=== PATIENT | female | born 1990 | race Caucasian/White ===

== ENCOUNTER 2023-06-30 12:39 | Outpatient (AMB) | payer OTHER, SELFPAY ==
--- NOTE | 2023-06-30 12:58 | AM.OFFWIN_ITS ---
Intake Vital Signs 06/30/23 13:00 BP 116/70 Blood Pressure Location Lt brachial Position Sitting Pulse 88 Pulse Source Pulse Oximeter Temp 98.2 F Temp Source Oral Pulse Oximetry (%) 98 Oxygen Delivery Method Room Air Intake Visit Reasons: [employer]IST-Strep throat? Intake Note: Pt is here today c/o sore throat and a cough since yesterday: someone at work tested positive for strep Patient Tobacco Use Status: Former Tobacco user Allergies No Known Allergies Allergy (Verified 06/30/23 13:09) Medication List - Last Reconciled 06/30/23 by Devi Perea CNP No Known Home Meds HPI HPI Comments History of Present Illness Details 33-year-old female presents today for sick visit, complaining of sore throat and cough x 3 days, scratchy throat started 4 days ago.. Patient reports recent contact at work with employee tested positive for strep there. Patient reports history of strep throat, admits to fever, chills, cough, and difficulty swallowing due to irritated throat. She denies CP, SOB, headache, dizziness, neck pain, abdominal pain, nausea, vomiting, changes in bowel or bladder. [facility] Social History Patient Tobacco Use Status: Former Tobacco user Review of Systems Const All systems reviewed & are unremarkable except as noted in HPI and below Physical Exam Vital Signs: Last Vital Signs Temp 98.2 F 06/30/23 13:00 Pulse 88 06/30/23 13:00 BP 116/70 06/30/23 13:00 Pulse Ox 98 06/30/23 13:00 Oxygen Delivery Method Room Air 06/30/23 13:00 Const General: no acute distress Nutritional Appearance: well nourished Orientation/consciousness: patient oriented x3 Limitations: no limitations HEENT Head: Yes normocephalic and Yes atraumatic Ears: hearing grossly normal bilaterally and TM's normal bilaterally Mouth: moist mucous membranes Throat: Yes posterior oropharynx abnormal (erythematous w/ white papule's) Neck Neck: Yes no meningeal signs and Yes lymphadenopathy (bilateral submandibular) Resp Effort & Inspection: normal respiratory effort, Actively coughing Quality: dry, no respiratory distress and not tachypneic Auscultation: clear to auscultation bilaterally Cardio Rhythm: regular rhythm Heart sounds: S1 normal heart sound present and S2 normal heart sound present Peripheral pulses: Peripheral pulses 2+ throughout GI Palpation (GI): Soft to palpation and nontender Auscultation: normal bowel sounds Neuro General: patient oriented x3, gait normal, moves all extremities and no meningeal signs Extrem General: Yes normal to inspection, Yes full ROM, Yes capillary refill normal and Yes no clubbing, cyanosis or edema Psych Mental Status: mental status grossly normal Speech and movement: Normal speech and movement present Affect: normal affect Attitude: cooperative Results AMB Rapid Strep AMB Rapid Strep Negative Last Edit by Daksha Prater CMA on 06/30/23 13:07 Results Reviewed Results Reviewed: Laboratory Last Values Strep Scn Rapid Clinic Negative 06/30/23 13:04 Assessment & Plan Assessment & Plan (1) Strep throat: Code(s): J02.0 - Streptococcal pharyngitis Plan: 33-year-old female seen today for complaint of sore throat and difficulty swallowing due to irritated throat pain. She does have a history of strep throat. Rapid strep negative, BinaxNow rapid covid test negative posterior orophyarngeal erythematous w/ white papules; +bilateral submandibular lymphadenopathy Will treat with PCN 500 mg po bid x 7 days, encouraged to take w/ food. Warm salt water gargles, cool liquids, jello and popsicles Return to office for worsening or unresolved symptoms Orders: Orders Binax[facility] Covid-19 Ag Today J02.9 - Acute pharyngitis, unspecified AMB Rapid Strep Screen Today Z13.9 - Encounter for screening, unspecified AMB Rapid Strep Screen Today J02.9 - Acute pharyngitis, unspecified, Z13.9 - Encounter for screening, unspecified Medications: New penicillin V potassium 500 mg PO BID 14 tabs 0RF J02.0 - Streptococcal pharyngitis Coding Level of Care Code Est Pt Level 3 (35569) Diagnoses Strep throat J02.0
[2023-06-30 13:00] VITALS: BP 116/70; PULSE 88; TEMP 36.8; O2SAT 98
== END 2023-06-30 13:56 | disposition home or self-care (01) ==
PROVIDERS: Visit Provider Nurse Practitioner Acute Care
DX: J02.0 Streptococcal pharyngitis (principal); J02.9 Acute pharyngitis, unspecified
CPT/HCPCS: 87880; 99213

== ENCOUNTER 2023-06-30 13:23 | Outpatient (REF) | payer OTHER, SELFPAY ==
[2023-06-30 13:46] LABS: Binax Internal Control QC Valid; Binax Now Covid-19 Ag Negative (Negative); Binax Performed by: PAULP
== END 2023-06-30 13:24 | disposition home or self-care (01) ==
LOC: HO.HMGCLDS 13:23
PROVIDERS: Visit Provider Nurse Practitioner Acute Care
DX: J02.9 Acute pharyngitis, unspecified (principal); Z20.822 Contact with and (suspected) exposure to COVID-19
CPT/HCPCS: 87811; C9803